=== PATIENT | female | born 1980 | race Caucasian/White ===

== ENCOUNTER → 2017-05-24 | Outpatient (CLI) | payer OTHER | LOC: FIMAGING 13:15 | PROVIDERS: ATTEND Advanced Practice Midwife | DX: Z36.89 Encounter for other specified antenatal screening (principal); O09.522 Supervision of elderly multigravida, second trimester; Z3A.20 20 weeks gestation of pregnancy ==

== ENCOUNTER → 2017-08-02 | Outpatient (CLI) | payer OTHER | LOC: FIMAGING 07:20 | PROVIDERS: ATTEND Advanced Practice Midwife | DX: O09.512 Supervision of elderly primigravida, second trimester (principal); Z3A.22 22 weeks gestation of pregnancy ==

== ENCOUNTER → 2017-08-30 | Outpatient (CLI) | payer OTHER | LOC: FIMAGING 13:14 | PROVIDERS: ATTEND Advanced Practice Midwife | DX: O36.62X0 Maternal care for excessive fetal growth, second trimester, not applicable or unspecified (principal); O09.522 Supervision of elderly multigravida, second trimester; Z3A.27 27 weeks gestation of pregnancy ==

== ENCOUNTER → 2017-10-11 | Outpatient (CLI) | payer OTHER | LOC: FIMAGING 13:37 | PROVIDERS: ATTEND Advanced Practice Midwife | DX: O36.62X0 Maternal care for excessive fetal growth, second trimester, not applicable or unspecified (principal); O09.522 Supervision of elderly multigravida, second trimester; Z3A.32 32 weeks gestation of pregnancy; O24.410 Gestational diabetes mellitus in pregnancy, diet controlled ==

== ENCOUNTER → 2017-11-12 | Outpatient (CLI) | payer OTHER | LOC: FIMAGING 09:11 | PROVIDERS: ATTEND Advanced Practice Midwife | DX: O36.63X0 Maternal care for excessive fetal growth, third trimester, not applicable or unspecified (principal); O24.419 Gestational diabetes mellitus in pregnancy, unspecified control; O09.513 Supervision of elderly primigravida, third trimester; Z3A.36 36 weeks gestation of pregnancy ==

== ENCOUNTER 2017-11-17 21:29 | Inpatient (IN) | payer OTHER ==
[2017-11-17] MEDS ORDERED: EPSOM SALT 454 GM TP PRN (22:08)
[2017-11-17] MEDS ORDERED: TERBUTALINE SULFATE 1 MG/ML VIAL IV PRN (22:08)
[2017-11-17] MEDS ORDERED: LIDOCAINE 1% 300 MG/30 ML SDV SC PRN (22:08)
[2017-11-17] MEDS ORDERED: IBUPROFEN 600 MG TAB PO PRN (22:08)
[2017-11-17] MEDS ORDERED: OLIVE OIL 118 ML BTL MISC PRN (22:08)
[2017-11-17] MEDS ORDERED: OXYTOCIN/RINGERS LACTATE 1,000 ML IV PRN (22:08)
[2017-11-17] MEDS ORDERED: AMPICILLIN SODIUM 2 GM in STERILE WATER INJ 25 ML IV ONE (22:08)
[2017-11-17] MEDS ORDERED: MISOPROSTOL 200 MCG TAB PR PRN (22:08)
[2017-11-17] MEDS ORDERED: LR 1,000 ML IV PRN (22:08)
[2017-11-17 22:51] LABS: PLATELET COUNT 175 10^3/uL (150-400)
--- NOTE | 2017-11-17 23:00 | PDGENHP ---
History and Physical History and Physical: CARE: [facility] HPI: Patient is a 37yo with IUP@37-4 that presents to L&D with complaints of leaking fluid @ 1930. She states fluid is clear and odorless. She denies any regular contractions. She denies any VB. She reports +FM. EDC: 12/05/2017 which is based on LMP: 02/27/17 which is known and consistent with Ultrasound at 8 weeks. Her is complicated by: AMA, A1GDM, Rh Negative, Rubella NI, borderline low platelets Review of Systems: Constitutional: Denies any fever, chills, or fatigue HEENT: denies any visual changes, difficulty swallowing, hearing loss Cardiovascular: Denies any chest pain, palpitations, leg swelling Respiratory: denies any cough, wheezing, or shortness of breathe GI: Denies any nausea, vomiting, diarrhea, constipation : denies any dysuria, urgency, frequency, vaginal bleeding Musculoskeletal: denies any muscle or bone pain Skin: denies any rashes Neuro: denies any headache, seizures, lightheadedness, dizziness, or loss of consciousness Psychiatric: denies any depression, anxiety, or SI/HI thoughts HISTORY: Previous OB history: G1 Past medical history: childhood asthma (no problems) Past surgical history: none Medications: PNV, rhogam (09/11/17) Allergies (list reaction): NKDA LABS: Rh: Negative ABS: Neg Rubella: Immune HbsAg: NR HIV: NR VDRL: NR 1hr: 185 => GDM GC: Neg Chlamydia: Neg Pap: Normal GBS: positive PHYSICAL EXAM: Constitutional: WN, A&Ox3 HEENT: normocephalic atraumatic, supple Heart: RRR, no murmur Chest: CTA-B Abdomen: Soft, nontender, gravid SVE: /60/-2 Extremities: trace edema, negative homans sign Neuro: grossly normal Psych: normal affect assessment: Reassuring FHTs, baseline 140 +accels, no decels, moderate variability Contractions: toco q 4-6 Assessment: 1) [id number] with IUP@ 37-4wks (L/8) 2) PROM 3) GBS positive 4) Cat 1 FHR tracing 5) Rh negative 6) AMA 7) A1GDM Plan: 1) Admit to L&D 2) IV Abx 3) expectant management for now, as pt is nii 4) blood sugar on admission, then q4 for early labor, then q2 for active labor - with pts own device 5) start augmentation @ 0500 6) anticipate
[2017-11-18] MEDS: AMPICILLIN SODIUM 1 GM in STERILE WATER INJ 15 ML IV SCH ×3 (04:06→14:00)
[2017-11-18] MEDS ORDERED: fentaNYL 100 MCG/2 ML INJ ONE (04:44)
[2017-11-18] MEDS ORDERED: BUPIVACAINE 0.25% 30 ML SDV ONE (04:45)
[2017-11-18] MEDS ORDERED: PHENYLEPHRINE HCL 100 MCG/ML SYR ONE (04:45)
--- NOTE | 2017-11-18 04:52 | PREANESOB ---
Obstetric Pre-Anesthesia Info - General Info Proposed Procedure: Continuous labor epidural : 1 Para: 0 CONNOR: 12/05/17 Gestational Age: 37 week(s) and 3 day(s) - Info Status: Full Term, [place] Monitors: External FHR Pattern: Reassuring - Labor Status Cervical Dilation per last OB SVE: 5 Amniotic Fluid Color: Clear PIH: No Magnesium Sulfate in Use: No Indications for Labor Analgesia: Pain Control Labor Epidural: Proposed Anesthesia Allergies/Adverse Reactions: Allergy/AdvReac Type Severity Reaction Status Date / Time No Known Allergies Allergy Verified 11/17/17 22:02 Home Medications: Medication Instructions Recorded Vit27&Calcium/Iron/FA 1 tab PO DAILY 11/17/17 [] Visit Medications: Generic Name Dose Route Start Last Admin Trade Name Freq PRN Reason Stop Dose Admin Ampicillin Sodium 1 gm/ 15 mls @ 60 mls/hr 11/18/17 03:00 11/18/17 04:06 Sterile Water IV 12/18/17 02:59 15 mls Q4H [facility] Administration Protocol Lactated Ringer's 1,000 mls @ 0 mls/hr 11/17/17 22:08 Lr IV 11/18/17 22:07 PRN PRN SEE PROTOCOL CONDITIONS Protocol Per Protocol Oxytocin/Lactated Ringer's 1,000 mls @ 125 mls/hr 11/17/17 22:08 Pitocin 20 Units/Lr (Premix) IV PRN PRN Post bleeding Fentanyl 200 mcg/ Bupivacaine 100 mls @ 0 mls/hr 11/18/17 05:00 HCl 20 ml/ Sodium Chloride EP 11/28/17 04:59 CONT [facility] Protocol As Directed Ibuprofen 600 mg 11/17/17 22:08 Motrin PO ONCE PRN post , pain Lidocaine HCl 300 mg 11/17/17 22:08 Lidocaine Hcl 1% SC 05/16/18 22:07 ONCE PRN episiotomy Magnesium Sulfate 454 gm 11/17/17 22:08 Epsom Salt TP 05/16/18 22:07 Q1H PRN perineal discomfort Misoprostol 800 - 1,000 mcg 11/17/17 22:08 Cytotec WI ONCE PRN Vaginal Atony/Bleeding [place] Oil 118 ml 11/17/17 22:08 Sweet Oil MISC 05/16/18 22:07 ONCE PRN perineal massage Terbutaline Sulfate 0.25 mg 11/17/17 22:08 Brethine IV 05/16/18 22:07 ONCE PRN Tachysystole Discontinued Medications Generic Name Dose Route Start Last Admin Trade Name Julita PRN Reason Stop Dose Admin Bupivacaine HCl Confirm 11/18/17 04:45 Sensorcaine 0.25% Sdv Administered 11/18/17 04:46 Dose 30 ml .ROUTE .STK-MED ONE Fentanyl Confirm 11/18/17 04:44 Sublimaze Administered 11/18/17 04:45 Dose 100 mcg .ROUTE .STK-MED ONE Ampicillin Sodium 2 gm/ 25 mls @ 100 mls/hr 11/17/17 22:08 11/17/17 22:50 Sterile Water IV 11/17/17 22:22 25 mls ONCE ONE Administration Protocol Phenylephrine HCl Confirm 11/18/17 04:45 Neosynephrine Administered 11/18/17 04:46 Dose 1,000 mcg .ROUTE .STK-MED ONE - Anesthesia History Response to Local Anesthetics: Normal Anesthesia & Operative History: No Prior Problems Family Anesthesia History: Not Applicable - Social History Substance Use/Abuse: Denies - Vital Signs Height/Weight (Nursing): Height 165.1 cm Weight 86.183 kg - Focused Exam Neck exam: FROM Mallampati Score: Class 1 Mouth exam: normal dental/mouth exam Pulmonary: no respiratory distress Cardiovascular: regular rate and rhythym Labs: 11/17/17 22:40 Patient ABO/Rh A NEGATIVE 11/17/17 22:40 - Plan Consent Signed and on Chart: Yes Urgent/Emergent Case: Nimisha ghotra completed preop but documented later for safe timely pt care General Comments: Gestational diabetes
[2017-11-18] MEDS ORDERED: fentaNYL 200 MCG, BUPIVACAINE 0.5% 20 ML in NS 100 ML EP SCH (05:00)
[2017-11-18] MEDS ORDERED: PHENYLEPHRINE HCL 100 MCG/ML SYR IVP PRN (05:40)
[2017-11-18] MEDS ORDERED: ONDANSETRON 4 MG/2 ML VIAL IVP PRN (05:40)
[2017-11-18] MEDS ORDERED: NALOXONE HCL 0.4 MG/ML INJ IVP PRN (05:40)
--- NOTE | 2017-11-18 05:48 | POSTANESTH ---
Post Anesthetic Evaluation Cardiovascular Status: Normal, Stable, Similar to Pre-Op Cond Respiratory Status: Normal, Stable, Similar to Pre-op Cond. Level of Consciousness/Mental Status: Can Participate in Eval, Alert and Oriented Pain Control: Adequate, Prn Tx Ordered Nausea/Vomiting Control: Adequate, Prn Tx Ordered Complications Possibly Related to Anesthesia: None Noted (Patient tolerated placement of labor epidural without issue.)
[2017-11-18] MEDS ORDERED: fentaNYL 2MCG/ML/BUP 0.1% RTU 100 ML EP SCH (06:00)
[2017-11-18] MEDS ORDERED: LR 500 ML IV SCH (06:00)
[2017-11-18] MEDS ORDERED: LR 500 ML IV PRN (06:45)
--- NOTE | 2017-11-18 06:45 | OBPROG ---
Labor Progress Note Assessment/Plan: Assessment: [id number] with IUP@37-5wks PROM GBS Positive AMA Cat 1 FHR tracing [address] in place Plan: pitocin started, cont to increase until adequate contractions reassess 2h/PRN anticipate 11/18/17 07:19 Subjective/Intrapartum Course: 11/18/17 07:26 Pt doing well, denies any pain, she is comfortable with WAYNE. She states she is tired. She was able to rest some. Objective: 11/17/17 22:40 Patient ABO/Rh A NEGATIVE 11/17/17 22:40 - SVE Dilation (cm): 1 Effacement (%): 80 Station: -2 Membranes: SROM Amniotic Fluid Color: Clear - Contraction Pattern Assessment Current Contraction Pattern: Regular - FHR Assessment [place] FHR (bpm): 140 FHR Pattern Variability: Moderate FHR Category: 2 Oxytocin Orders Assessment - Pre-Induction/Augmentation Assessment Presentation: Vertex Gestational Age: 37 week(s) and 3 day(s) Estimated Weight: 3755-0120 Membrane Status: Ruptured Current Contraction Pattern: Irregular - Heart Rate Pattern [place] FHR Baseline (bpm): 140 FHR Category: 2 FHR Pattern Variability: Moderate FHR Accelerations: Present FHR Decelerations: Late - Jay's Score Dilation: 1-2cm Effacement: 80+ Station: -2 Cervix: Medium Cervix Position: Mid Jay Score Total: 7 - Induction/Augmentation Consent Risks/Benefits of Procedure Reviewed/Pt Agrees to Proceed: Yes ICD10 Worksheet Patient Problems: Problems Problem Status Onset AMA (advanced maternal age) primigravida 35+ Acute PROM (premature rupture of membranes) Acute Positive GBS test Acute - ICD10 Problem Qualifiers (1) PROM (premature rupture of membranes) Qualifiers: PROM onset of labor timing: onset of labor within 24 hours of rupture (2) Positive GBS test (3) AMA (advanced maternal age) primigravida 35+ Qualifiers: Trimester: third trimester Qualified Code(s): O09.513 - Supervision of elderly primigravida, third trimester
[2017-11-18] MEDS ORDERED: OXYTOCIN/RINGERS LACTATE 500 ML IV SCH (07:00)
[2017-11-18] MEDS ORDERED: LIDOCAINE 1% 300 MG/30 ML SDV ONE (07:14)
[2017-11-18] MEDS ORDERED: TERBUTALINE SULFATE 1 MG/ML VIAL ONE (07:15)
[2017-11-18] MEDS ORDERED: AMMONIA AROMATIC 1 EACH AMP IH ONE (07:15)
[2017-11-18] MEDS ORDERED: OXYTOCIN 10 UNIT/ML VIAL ONE (07:15)
[2017-11-18] MEDS ORDERED: MISOPROSTOL 200 MCG TAB ONE (07:15)
[2017-11-18] MEDS ORDERED: OLIVE OIL 118 ML BTL ONE (07:15)
[2017-11-18] MEDS ORDERED: SIMETHICONE 80 MG TAB CHEW PO PRN (12:59)
[2017-11-18] MEDS ORDERED: HYDROCORTISONE 0.5% CREAM TP PRN (12:59)
[2017-11-18] MEDS ORDERED: HYDROCODONE/APAP 5/325 TAB PO PRN (12:59)
--- NOTE | 2017-11-18 13:12 | OBDEL ---
Info Type: Vaginal Presentation at Delivery: Vertex L&D Analgesia/Anesthesia Type: Epidural GBS+: Yes Antibiotic Used for + GBS: Ampicillin Intrapartum Medications: Generic Name Dose Route Start Last Admin Trade Name Julita PRN Reason Stop Dose Admin Ampicillin Sodium 1 gm/ 15 mls @ 60 mls/hr 11/18/17 03:00 11/18/17 07:52 Sterile Water IV 12/18/17 02:59 15 mls Q4H [facility] Administration Protocol Oxytocin/Lactated Ringer's 500 mls @ 0 mls/hr 11/18/17 07:00 11/18/17 07:14 Pitocin 30 Units/Lr (Premix) IV 05/17/18 06:59 500 mls CONT [facility] Administration Protocol Per Protocol Discontinued Medications Generic Name Dose Route Start Last Admin Trade Name Julita PRN Reason Stop Dose Admin Ampicillin Sodium 2 gm/ 25 mls @ 100 mls/hr 11/17/17 22:08 11/17/17 22:50 Sterile Water IV 11/17/17 22:22 25 mls ONCE ONE Administration Protocol - Hospital Course Intrapartum: 11/18/17 07:26 Pt doing well, denies any pain, she is comfortable with WAYNE. She states she is tired. She was able to rest some. Indications for Delivery: SROM Vaginal Delivery - Delivery Provider Delivery Physician/CNM: Nahomy Christensen - Labor and Delivery Onset of Contractions Date: 11/18/17 Onset of Contractions Time: 09:00 Onset of Contractions Type: Augmented Rupture of Membranes Date: 11/17/17 Rupture of Membranes Time: 19:30 Rupture of Membranes Type: Spontaneous Amniotic Fluid Color: Clear Dilation Complete Date: 11/18/17 Dilation Complete Time: 11:35 Placenta Delivery Date: 11/18/17 Placenta Delivery Time: 12:39 Total Hours of Labor: 3 Laceration: 2nd Degree Repair: 3-0, Vicryl Vaginal Sponge Count Correct: Yes Vaginal Needle Count Correct: Yes Vaginal Sweep Performed: Yes EBL: 200 Delivery Events: Other (Specify) (compound right arm) - Medications Labor Augmentation/Induction Methods Used: Pitocin Labor Augmentation/Induction Indication: Contraction Strength Inadequate Data CONNOR: 12/05/17 Gestational Age: 37 week(s) and 4 day(s) [place] Delivery Date: 11/18/17 Delivery Time: 12:22 Sex of : Female Score (1 Min): 9 Score (5 Min): 9 ICD10 Worksheet Patient Problems: Problems Problem Status Onset AMA (advanced maternal age) primigravida 35+ Acute PROM (premature rupture of membranes) Acute Perineal laceration during delivery, delivered Acute Positive GBS test Acute (spontaneous vaginal delivery) Acute - ICD10 Problem Qualifiers (1) PROM (premature rupture of membranes) Qualifiers: PROM onset of labor timing: onset of labor within 24 hours of rupture (2) Positive GBS test (3) AMA (advanced maternal age) primigravida 35+ Qualifiers: Trimester: third trimester Qualified Code(s): O09.513 - Supervision of elderly primigravida, third trimester (4) (spontaneous vaginal delivery) (5) Perineal laceration during delivery, delivered
--- NOTE | 2017-11-18 13:23 | PDMN ---
Medical Necessity Medical necessity: C/M review: Patient [place] [id number] Vag[place] delivery: viable female . CNM anticipates > 2 MN LOS for ongoing med nec for eval and TX of above.
[2017-11-18] MEDS: DOCUSATE SODIUM 100 MG CAP PO PRN (20:12)
[2017-11-18] MEDS: IBUPROFEN 600 MG TAB PO PRN (20:12)
--- NOTE | 2017-11-18 20:53 | POSTANESTH ---
Post Anesthetic Evaluation Cardiovascular Status: Normal, Stable, Similar to Pre-Op Cond Respiratory Status: Normal, Stable, Similar to Pre-op Cond. Level of Consciousness/Mental Status: Can Participate in Eval, Alert and Oriented Pain Control: Adequate, Prn Tx Ordered Nausea/Vomiting Control: Adequate, Prn Tx Ordered Complications Possibly Related to Anesthesia: None Noted (Patient seen after delivery of baby girl and epidural catheter removed. Patient ambulating and able to urinate. Patient denies symptoms of PDPH. Patient expressed thankfulness for care by anesthesiologist.)
[2017-11-19] MEDS: IBUPROFEN 600 MG TAB PO PRN ×4 (01:46→21:43)
[2017-11-19] MEDS: PRENATAL VIT 1 EACH TAB PO SCH (09:49)
[2017-11-19] MEDS: DOCUSATE SODIUM 100 MG CAP PO PRN ×2 (09:49→21:43)
--- NOTE | 2017-11-19 10:26 | OBPP ---
Progress Note Assessment/Plan: Assessment:37 PPD#1 s/p - doing well, Rh neg - received Rhogam this morning. Plan:Continue routine pp cares and support, anticipate dc home tomorrow 11/19/17 10:26 Subjective/ Course: 11/19/17 10:24 Doing well. Ambulating and voiding without difficulty. going well so far - working with . Notes anus and vaginal introitus sore, but OK with pain meds. Objective: 11/19/17 05:25 Patient ABO/Rh A NEGATIVE 11/18/17 15:10 Temp Pulse Resp BP Pulse Ox 36.4 C 72 16 102/63 99 11/19/17 09:01 11/19/17 09:01 11/19/17 09:01 11/19/17 09:01 11/19/17 09:01 gen - pleasant, NAD CV -RRR chest - CTAB abd - soft, + BS, fundus firm and NT at u-1 ext - trace edema, calves NT peripad - min lochia Uterine Position/Fundal Height: Umbilicus -1 (nontender) Uterine Tone: Firm
[2017-11-20] MEDS: IBUPROFEN 600 MG TAB PO PRN (05:33)
[2017-11-20 09:53] VITALS: BP 112/62
--- NOTE | 2017-11-20 10:48 | OBGCSDC ---
General Delivery Information - General Info : 1 Para: 1 Abortions: 0 Type: Vaginal L&D Analgesia/Anesthesia Type: Epidural Admission Date: 11/17/17 Labs: Patient ABO/Rh A NEGATIVE 11/18/17 15:10 Hct 39.8 % (38.0-47.0) 11/19/17 05:25 - Hospital Course Intrapartum: 11/18/17 07:26 Pt doing well, denies any pain, she is comfortable with WAYNE. She states she is tired. She was able to rest some. : 11/19/17 10:24 Doing well. Ambulating and voiding without difficulty. going well so far - working with . Notes anus and vaginal introitus sore, but OK with pain meds. Vaginal - Delivery Provider Delivery Physician/CNM: Nahomy Christensen - Diagnosis Labor: Augmented Rupture of Membranes Type: Spontaneous Amniotic Fluid Color: Clear Laceration: 2nd Degree Repair: 3-0, Vicryl Delivery Events: Other (Specify) (compound right arm) - Delivery EBL: 200 Magna Data CONNOR: 12/05/17 Gestational Age: 37 week(s) and 6 day(s) [place] Delivery Date: 11/18/17 Delivery Time: 12:22 Sex of : Female Magna Weight (gm): 3482 g Score (1 Min): 9 Score (5 Min): 9
[2017-11-20] MEDS: PRENATAL VIT 1 EACH TAB PO SCH (14:44)
== END 2017-11-20 16:00 | disposition home or self-care (01) | DRG 775 ==
LOC: FLD 21:29 → OBSVTOIN 22:08 → FOB 11-18 16:17
PROVIDERS: ADMIT Advanced Practice Midwife; ATTEND Advanced Practice Midwife
DX: O24.429 Gestational diabetes mellitus in childbirth, unspecified control (principal); Z37.0 Single live birth; O70.1 Second degree perineal laceration during delivery; Z3A.37 37 weeks gestation of pregnancy; O99.824 Streptococcus B carrier state complicating childbirth
CPT/HCPCS: J0290; J2370; J2590; J3010; J3105

== ENCOUNTER → 2017-11-28 | Outpatient (CLI) | payer OTHER | LOC: FLACT 10:38 | PROVIDERS: ATTEND Advanced Practice Midwife | DX: Z39.1 Encounter for care and examination of lactating mother (principal) | CPT/HCPCS: G0463 ==